=== PATIENT | male | born 1955 | race Caucasian/White ===

== ENCOUNTER 2016-11-19 13:27 | Day surgery (SDC) | payer OTHER ==
[~2016-11-19] VITALS: Ht 167.6 cm; Wt 93.6 kg
[2016-11-19] MEDS ORDERED: FISH1000 PO (13:36)
[2016-11-19] MEDS ORDERED: MELO15TA4 PO (13:46)
[2016-11-19] MEDS ORDERED: METF10004 PO (13:46)
[2016-11-19] MEDS ORDERED: TIOT18INH INH (13:46)
[2016-11-19] MEDS ORDERED: BUDE3CAP PO (13:46)
[2016-11-19] MEDS ORDERED: ASPI81TA85 PO (13:46)
[2016-11-19] MEDS ORDERED: ATOR40TA75 PO (13:46)
[2016-11-19] MEDS ORDERED: HYDR12.55 PO (13:46)
[2016-11-19] MEDS ORDERED: CARV3.12 PO (13:46)
[2016-11-19] MEDS ORDERED: ALBU17IN INH (13:46)
[2016-11-19] MEDS ORDERED: LISI40TAB PO (13:46)
[2016-11-19] MEDS ORDERED: AMLO10TA2 PO (13:46)
[2016-11-19] MEDS ORDERED: NS 1,000 ML IV ONE (14:00)
[2016-11-19 14:25] LABS: BASO # 0.1 K/mm3 (0.0-0.2); BASO % 0.7 % (0.0-1.0); EOS # 0.2 K/mm3 (0.0-0.50); EOS % 1.1 % (0.0-3.0); LARGE UNSTAINED CELL # 0.2 K/mm3 (0.0-0.4); LARGE UNSTAINED CELL % 1.3 % (0.0-4.0); LYMPH % 7.3 % (24.0-44.0); MEAN CORPUSCULAR HEMOGLOBIN 31.2 pg (27.0-33.0); MEAN CORPUSCULAR HGB CONC 34.8 g/dl (32.0-36.5); MEAN CORPUSCULAR VOLUME 89.6 fl (80.0-96.0); MONO # 0.7 K/mm3 (0.0-0.8); MONO % 5.1 % (0.0-5.0); NEUTROPHILS # 11.8 K/mm3 (1.8-7.7); NEUTROPHILS % 84.5 % (36.0-66.0); PLATELET COUNT, AUTOMATED 196 k/mm3 (150-450)
[2016-11-19 15:00] LABS: ALBUMIN 4.2 GM/DL (3.2-5.2); ALBUMIN/GLOBULIN RATIO 0.91 (1.00-1.93); ALKALINE PHOSPHATASE 101 U/L (45-117); ALT/SGPT 59 U/L (12-78); ANION GAP 8 MEQ/L (8-16); AST/SGOT 21 U/L (15-37); BILIRUBIN,DIRECT 0.4 MG/DL (0.0-0.2); BILIRUBIN,TOTAL 1.7 MG/DL (0.2-1.0); BLOOD UREA NITROGEN 17 MG/DL (7-18); CALCIUM LEVEL 9.5 MG/DL (8.8-10.2); CARBON DIOXIDE LEVEL 29 MEQ/L (21-32); CHLORIDE LEVEL 97 MEQ/L (98-107); CREATININE FOR GFR 1.24 MG/DL (0.70-1.30); GLOMERULAR FILTRATION RATE > 60.0 (>49); GLUCOSE, FASTING 115 MG/DL (80-110); POTASSIUM SERUM 3.7 MEQ/L (3.5-5.1); SODIUM LEVEL 134 MEQ/L (136-145); TOTAL PROTEIN 8.8 GM/DL (6.4-8.2)
[2016-11-19] MEDS ORDERED: ISOVUE-370 76% 100ML VIAL (Q9967) As Ordered ONE (15:14)
--- NOTE | 2016-11-19 16:00 | REP ---
Clinical: Right lower quadrant pain. Technique: Axial contrast enhanced images from the lung bases to the pubic symphysis using 100 ml Isovue 370 intravenous contrast material with coronal and sagittal re-formations. Findings:Acute appendicitis includes fluid-filled dilated appendix measuring 19 mm diameter with small appendicolith at the base of the appendix and moderate to significant surrounding periappendiceal and right lower quadrant inflammatory stranding. No free fluid, drainable collection or abscess. No evidence for bowel obstruction. No free air to suggest perforation. Fatty infiltration to the liver without focal hepatic lesion. Spleen, pancreas, gallbladder, right adrenal gland and bilateral kidneys are normal. Left adrenal gland includes 1.4 cm heterogeneous nodule which may represent benign adenoma. The enteric system is unremarkable with the exception of the above-mentioned acute appendicitis. Pelvis demonstrates normal bladder and age appropriate prostate/seminal vesicles. Fat containing inguinal hernias noted. Abdominal aorta without aneurysm or dissection. Surrounding musculoskeletal structures demonstrate age-related degenerative changes. Lung bases are clear. Impression: 1. Acute appendicitis as described above without evidence for drainable collection/abscess, bowel perforation or obstruction. 2. Hepatosteatosis. 3. 1.4 cm left adrenal lesion likely adenoma. Signed by Mau Hager MD 11/19/2016 03:52 P
[2016-11-19] MEDS ORDERED: ONDANSETRON 4MG/2ML VIAL (J2405) IV PRN (16:15)
[2016-11-19] MEDS ORDERED: KETOROLAC 30 MG/ML VIAL (J1885) IV PRN (16:15)
[2016-11-19] MEDS ORDERED: MORPHINE 4 MG/ML 1ML SYRINGE IV ONE (16:15)
[2016-11-19] MEDS ORDERED: ONDANSETRON 4MG/2ML VIAL (J2405) IV ONE (16:15)
[2016-11-19] MEDS ORDERED: NORCO, ANEXSIA 5/325MG TABLET (HYDROcodone/ACETAMINOPHEN) PO PRN (16:15)
[2016-11-19] MEDS ORDERED: MORPHINE 2 MG/ML 1ML SYRINGE IV PRN (16:15)
[2016-11-19] MEDS ORDERED: ALBUTEROL 90 MCG/ACT 8GM HFA INHALER INH PRN (16:15)
[2016-11-19] MEDS ORDERED: PIPERACILLIN/TAZOBACTAM SOD 3.375 GM in D5W MINI-BAG PLUS 50 ML IV ONE (16:15)
[2016-11-19] MEDS ORDERED: ACETAMINOPHEN TAB 650MG DOSE (2X325MG) PO PRN (16:15)
[2016-11-19] MEDS ORDERED: HYDR25TAB PO (16:19)
[2016-11-19] MEDS: metFORMIN (GLUCOPHAGE) 1000 MG TABLET PO SCH (18:00)
[2016-11-19 18:26] VITALS: BP 160/75
[2016-11-19] MEDS: LR 1,000 ML IV SCH (18:42)
[2016-11-19] MEDS: CARVedilol 3.125 MG TAB PO SCH (20:32)
[2016-11-19] MEDS: SENOKOT S TAB PO SCH (21:00)
[2016-11-19 21:30] VITALS: BP 120/55
[2016-11-19] MEDS: HEPARIN SOD (PORCINE) 5000 UNITS/ML VIAL SC SCH (21:30)
[2016-11-19] MEDS: PIPERACILLIN/TAZOBACTAM SOD 3.375 GM in D5W MINI-BAG PLUS 50 ML IV SCH (22:00)
[2016-11-19] MEDS ORDERED: BUPIVACAINE/EPIN 0.25% 30 ML VIAL As Ordered ONE (22:02)
[2016-11-19] MEDS ORDERED: PROPOFOL 200 MG/20 ML VIAL As Ordered ONE (22:54)
[2016-11-19] MEDS ORDERED: ONDANSETRON 4MG/2ML VIAL (J2405) As Ordered ONE (22:54)
[2016-11-19] MEDS ORDERED: LIDOCAINE 2% INJ 100 MG/5 ML SDV (FOR ANES.) As Ordered ONE (22:54)
[2016-11-19] MEDS ORDERED: KETOROLAC 60 MG/2 ML VIAL (J1885) As Ordered ONE (22:54)
[2016-11-19] MEDS ORDERED: MIDAZOLAM INJ 2 MG/2 ML VIAL (J2250) As Ordered ONE (22:54)
[2016-11-19] MEDS ORDERED: dexameTHASONE 4 MG/ML 1ML VIAL (J1100) As Ordered ONE (22:54)
[2016-11-19] MEDS ORDERED: ROCURONIUM BROMIDE 50 MG/5 ML VIAL/SYRINGE As Ordered ONE (22:54)
[2016-11-19] MEDS ORDERED: fentaNYL 250 MCG/5 ML INJECTION (J3010) As Ordered ONE (22:54)
[2016-11-19] MEDS ORDERED: fentaNYL 100 MCG/2 ML INJECTION (J3010) As Ordered ONE (22:54)
--- NOTE | 2016-11-19 23:12 | HPE ---
DATE OF ADMISSION: 11/19/2016 CHIEF COMPLAINT: Abdominal pain. HISTORY OF PRESENT ILLNESS: Abdominal pain. HISTORY OF PRESENT ILLNESS: The patient is a 61-year-old male presents with right lower quadrant abdominal pain that started on Saturday. Has been getting progressively worse. No nausea or vomiting. No fevers at home. He has had just decreased appetite with the last meal being yesterday afternoon. He came into the emergency room today for evaluation. Had a CT scan done, which showed a dilated fluid-filled appendix with a fecalith in the base suggestive of acute appendicitis. PAST MEDICAL HISTORY: Hypertension, diabetes, hyperlipidemia. PAST SURGICAL HISTORY: Spinal neck surgery. ALLERGIES: NIACIN. MEDICATIONS: Please see med record. REVIEW OF SYSTEMS: Pertinent positives and negatives as stated in the history of present illness. SOCIAL HISTORY: Smokes a pack a day. Social alcohol. Denies any drug usage. FAMILY HISTORY: Noncontributory. PHYSICAL EXAMINATION: General: Patient is alert and oriented times three. No acute stress. Vitals: Temperature 97.4, pulse 70, respirations 17, blood pressure 120/55, pulse oximetry 93% on room air. HEENT: Pupils equal, round and react to light and accommodation. Heart: S1, S2 regular rate and rhythm. Lungs: Clear to auscultation bilaterally. Abdomen: Soft. Tender to palpation right lower quadrant. Localized guarding, no rebound, rigidity. Bowel sounds positive. Extremities: No clubbing, cyanosis or edema. LABORATORY DATA: White count 14, hemoglobin 16.2, platelets 196, potassium 3.7, creatinine 1.24, total bilirubin 1.7, direct bilirubin 0.4. IMAGING STUDIES: CT abdomen and pelvis shows an acute appendicitis with fluid-filled dilated appendix measuring 19 mm in diameter with a small appendicolith at the base of the appendix. Marked significant surrounding periappendiceal and right lower quadrant inflammatory stranding. No signs of any free fluid, drainable collection or abscesses. No signs of bowel obstruction. No free air. ASSESSMENT/PLAN: The patient 61-year-old male history of hypertension, diabetes, hyperlipidemia and neck surgery presents with right lower quadrant abdominal pain, found to have acute appendicitis. Recommendation to proceed with laparoscopic, possible open appendectomy. Risks and benefits of the procedure not limited to but including bleeding, infection, hernia formation, damage to surrounding structure, need for further surgery were discussed in detail with the patient. Informed consent was obtained and the procedure is scheduled for this evening. Postoperatively, he will be kept on IV fluids, antibiotics, regular diet. Once he is afebrile for 24 hours and his white count returns to normal he will be discharged home and will followup me in the office as an outpatient.
[2016-11-19] MEDS ORDERED: GLYCOPYRROLATE INJ 0.2 MG/ML 2 ML VIAL As Ordered ONE (23:15)
[2016-11-19] MEDS ORDERED: NEOSTIGMINE 1MG/ML 5 ML SYRINGE (J2710) As Ordered ONE (23:15)
[2016-11-19] MEDS ORDERED: ePHEDrine SULFATE 25 MG/5 ML(5MG/ML) SYRINGE As Ordered ONE (23:17)
[2016-11-19] MEDS ORDERED: FLUMAZENIL 0.5 MG/5 ML VIAL As Ordered ONE (23:50)
[2016-11-20] VITALS (10 sets, daily range): BP systolic 0–134; BP diastolic 0–85
[2016-11-20] MEDS ORDERED: KETOROLAC 30 MG/ML VIAL (J1885) IV PRN
[2016-11-20] MEDS ORDERED: LR 1,000 ML IV SCH (00:15)
[2016-11-20] MEDS ORDERED: ONDANSETRON 4MG/2ML VIAL (J2405) IV PRN (00:15)
[2016-11-20] MEDS ORDERED: fentaNYL 100 MCG/2 ML INJECTION (J3010) IV PRN (00:15)
[2016-11-20] MEDS ORDERED: ALBUTEROL SULFATE 2.5 MG/0.5 ML INH NEB SOLN INH PRN (00:30)
[2016-11-20] MEDS ORDERED: ALBUTEROL SULFATE 2.5 MG/0.5 ML INH NEB SOLN As Ordered ONE ×2 (00:37→00:40)
[2016-11-20] MEDS: PIPERACILLIN/TAZOBACTAM SOD 3.375 GM in D5W MINI-BAG PLUS 50 ML IV SCH ×2 (05:15→10:12)
[2016-11-20] MEDS: LR 1,000 ML IV SCH ×2 (05:15→08:39)
[2016-11-20] MEDS: HEPARIN SOD (PORCINE) 5000 UNITS/ML VIAL SC SCH (05:15)
[2016-11-20 05:51] LABS: MEAN CORPUSCULAR HEMOGLOBIN 30.3 pg (27.0-33.0); MEAN CORPUSCULAR HGB CONC 33.1 g/dl (32.0-36.5); MEAN CORPUSCULAR VOLUME 91.7 fl (80.0-96.0); RED CELL DISTRIBUTION WIDTH 13.5 % (11.5-14.5); WHITE BLOOD COUNT 9.7 K/mm3 (4.0-10.0)
[2016-11-20 06:19] LABS: ANION GAP 9 MEQ/L (8-16); BLOOD UREA NITROGEN 20 MG/DL (7-18); CALCIUM LEVEL 8.9 MG/DL (8.8-10.2); CARBON DIOXIDE LEVEL 27 MEQ/L (21-32); CHLORIDE LEVEL 100 MEQ/L (98-107); CREATININE FOR GFR 1.23 MG/DL (0.70-1.30); GLOMERULAR FILTRATION RATE > 60.0 (>49); GLUCOSE, FASTING 156 MG/DL (80-110); MAGNESIUM LEVEL 2.1 MG/DL (1.8-2.4); POTASSIUM SERUM 3.9 MEQ/L (3.5-5.1); SODIUM LEVEL 136 MEQ/L (136-145)
[2016-11-20] MEDS: metFORMIN (GLUCOPHAGE) 1000 MG TABLET PO SCH (08:37)
[2016-11-20] MEDS: CARVedilol 3.125 MG TAB PO SCH (08:38)
[2016-11-20] MEDS: SENOKOT S TAB PO SCH (08:38)
[2016-11-20] MEDS ORDERED: amLODIPine 10 MG TAB PO SCH (09:00)
[2016-11-20] MEDS ORDERED: MELOXICAM (MOBIC) 7.5 MG TAB PO SCH (09:00)
[2016-11-20] MEDS ORDERED: ASPIRIN 81 MG ENTERIC TAB PO SCH (09:00)
[2016-11-20] MEDS ORDERED: LISINOPRIL 40 MG TAB PO SCH (09:00)
[2016-11-20] MEDS ORDERED: ATORVASTATIN 20 MG TAB PO SCH (09:00)
[2016-11-20] MEDS ORDERED: hydroCHLOROthiazide 25 MG TAB PO SCH (09:00)
[2016-11-20] MEDS ORDERED: PANTOPRAZOLE 40MG INJ (PROTONIX) (C9113) IV SCH (09:00)
--- NOTE | 2016-11-20 09:30 | RO ---
DATE OF PROCEDURE: 11/19/2016 PREOPERATIVE DIAGNOSIS: Acute appendicitis. POSTOPERATIVE DIAGNOSIS: Acute appendicitis. PROCEDURE: Laparoscopic appendectomy. SURGEON: Kevin Hernandez DO ECONOMICS INSTRUCTOR: None. ANESTHESIA: General. ESTIMATED BLOOD LOSS: 5. COMPLICATIONS: None. INDICATIONS FOR PROCEDURE: Patient is a 61-year-old male who presents with right lower quadrant abdominal pain since last Saturday. Was found to have acute appendicitis on exam, which was confirmed with CT scan. Recommendation to proceed with laparoscopic, possible open appendectomy. Risks and benefits of procedure are not limited but include bleeding, infection, hernia formation, damage surrounding structures, need further surgery were discussed in detail with the patient. Informed consent was obtained and procedure was planned. DESCRIPTION OF PROCEDURE: Patient brought back to operating room #3. After sufficient sedation, the abdomen was sterilely prepped and draped. Next, time-out was done to confirm proper patient and proper procedure. Following that a left lower quadrant 5 mm incision was made. Incision was carried down to the level of the fascia. A Veress needle was then used to gain access to the abdomen. Once abdomen was entered it was insufflated to 50 mmHg. Next ,Veress needle was removed. 5 mm Optiview port was used to gain access to the abdomen. Once the abdomen was entered, the appendix was easily visualized adhered to the right lower quadrant abdominal wall. Another 8 mm port was placed supraumbilically, a 5 mm port suprapubically in the midline. A loop of small bowel was carefully teased away from the appendix that was adhered to the appendix as well as the cecum. Once all that was mobilized away the appendix was carefully off of the abdominal wall. It was then elevated up in the air. Mesoappendix was taken down using the Enseal to the base of the appendix was reached. Once the base of the appendix was reached it was ligated twice with PDS Endoloops and then amputated using the Enseal and brought out with a 5 mm EndoCatch bag through the umbilical port site. Fluid in the right lower quadrant was aspirated out. No irrigation was used. The skin incision at the umbilicus had to be widened to remove the large appendix. Once the appendix was removed, two interrupted #0 Vicryl sutures were used to approximate the fascia at the umbilical port site. The abdomen was then desufflated. Skin incisions were closed with #4-0 Vicryl subcuticular sutures. The abdomen was cleaned and dried. Steri-Strips, 4 x 4 and tape were applied, thus ending procedure.
== END 2016-11-20 12:55 | disposition home or self-care (01) ==
LOC: M ED 14:47 → M SDC 16:15 → M MSPAV 17:24 → M SDC 11-20 12:55
PROVIDERS: ATTEND Surgery
DX: K35.80 Unspecified acute appendicitis (principal); R06.09 Other forms of dyspnea; I10 Essential (primary) hypertension; E78.5 Hyperlipidemia, unspecified; J44.9 Chronic obstructive pulmonary disease, unspecified; E11.9 Type 2 diabetes mellitus without complications; R06.83 Snoring; F17.210 Nicotine dependence, cigarettes, uncomplicated; Z88.1 Allergy status to other antibiotic agents; Z79.899 Other long term (current) drug therapy
CPT/HCPCS: 36415; 44970; 74177; 80048; 80076; 81001; 83690; 83735; 85025; 85027; 88302; 96374; 96375; 99284; C9113; J1100; J1885; J2250; J2405; J2543; J2710; J3010; Q9967

== ENCOUNTER → 2019-02-16 | Outpatient (CLI) | payer OTHER ==
[~2019-02-16] MED LIST: ALBU17IN INH; AMLO10TA5 PO; ASPI81TA85 PO; ATOR40TA75 PO; BUDE3CAP PO; CARV3.12 PO; FISH1000 PO; HYDR12.55 PO; HYDR25TAB PO; LISI40TA PO; MELO15TA28 PO; METF10004 PO; TIOT18INH INH
--- NOTE | 2019-02-16 14:37 | REP ---
CAROTID ULTRASOUND: Real-time ultrasound evaluation and duplex Doppler interrogation of the extracranial carotid vasculature is performed. There is mild to moderate plaquing and narrowing in both carotid bulbs extending into the internal and external carotid arteries. Luminal narrowing is less than 50%. There is no evidence of hemodynamically significant stenosis of either internal carotid artery. Normal flow velocities are seen. The vertebral arteries demonstrate normal direction of flow. RIGHT LEFT Peak systolic velocity ICA 61.9 cm/s 69.3 cm/s End diastolic velocity ICA 24.3 cm/s 29.4 cm/s Peak systolic velocity CCA 43.9 cm/s 61.5 cm/s Peak systolic velocity ECA 107 cm/s 108 cm/s ICA/CCA ratio 0.71 0.89 IMPRESSION: Bilateral luminal narrowing of the internal carotid arteries less than 50%. No evidence of hemodynamically significant stenosis. Electronically Signed by Kevin Wood MD 02/16/2019 02:29 P
== END ==
LOC: M RAD 11:28
PROVIDERS: ATTEND Internal Medicine Cardiovascular Disease
DX: I65.21 Occlusion and stenosis of right carotid artery (principal)

== ENCOUNTER → 2024-12-01 | Outpatient (CLI) | payer OTHER ==
[~2024-12-01] MED LIST changes: -AMLO10TA5 PO; +AMLO1TAB25 PO; -ASPI81TA85 PO; +ASPI81TA86 PO; +HYDR-3490 PO; -HYDR25TAB PO; -LISI40TA PO; +LISI40TA10 PO
[2024-12-01 11:30] LABS: BASO # 0.1 10^3/uL (0.0-0.2); BASO % 1.0 % (0.0-1.0); EOS # 0.3 10^3/uL (0.0-0.5); EOS % 4.5 % (0.0-3.0); LYMPH # 1.4 10^3/uL (1.5-5.0); LYMPH % 22.3 % (24.0-44.0); MONO # 0.5 10^3/uL (0.0-0.8); MONO % 7.4 % (2.0-8.0); NEUTROPHILS # 3.9 10^3/uL (1.5-8.5); NEUTROPHILS % 64.6 % (36.0-66.0); PLATELET COUNT, AUTOMATED 181 10^3/uL (150-450)
[2024-12-01 11:38] LABS: ALT/SGPT 16.0 U/L (7.0-40); AST/SGOT 21.0 U/L (<34); CALCIUM LEVEL 9.8 MG/DL (8.3-10.6); CARBON DIOXIDE LEVEL 32.0 MMOL/L (20-31); CHLORIDE LEVEL 97.0 MMOL/L (98-107); CREATININE FOR GFR 1.47 MG/DL (0.70-1.30); GLOMERULAR FILTRATION RATE 51.3 (>49); MAGNESIUM LEVEL 1.9 MG/DL (1.8-2.4); POTASSIUM SERUM 3.8 MMOL/L (3.5-5.1); SODIUM LEVEL 139.0 MMOL/L (136-145)
== END ==
LOC: M LAB 10:25
PROVIDERS: ATTEND Registered Nurse
DX: I50.42 Chronic combined systolic (congestive) and diastolic (congestive) heart failure (principal); I25.10 Atherosclerotic heart disease of native coronary artery without angina pectoris

== ENCOUNTER → 2024-12-16 | Outpatient (CLI) | payer MEDICARE, OTHER ==
[2024-12-16 12:07] LABS: CALCIUM LEVEL 9.1 MG/DL (8.3-10.6); CARBON DIOXIDE LEVEL 26.0 MMOL/L (20-31); CHLORIDE LEVEL 103.0 MMOL/L (98-107); CREATININE FOR GFR 1.76 MG/DL (0.70-1.30); GLOMERULAR FILTRATION RATE 41.3 (>49); MAGNESIUM LEVEL 2.2 MG/DL (1.8-2.4); PHOSPHORUS LEVEL 3.2 MG/DL (2.4-5.1); POTASSIUM SERUM 4.1 MMOL/L (3.5-5.1); SODIUM LEVEL 139.0 MMOL/L (136-145)
== END ==
LOC: M LAB 09:59
PROVIDERS: ATTEND Registered Nurse
DX: I50.42 Chronic combined systolic (congestive) and diastolic (congestive) heart failure (principal)

== ENCOUNTER → 2025-01-14 | Outpatient (CLI) | payer OTHER ==
[2025-01-14 10:21] LABS: ALT/SGPT 14.0 U/L (7.0-40); AST/SGOT 16.0 U/L (<34); CALCIUM LEVEL 8.8 MG/DL (8.3-10.6); CARBON DIOXIDE LEVEL 29.0 MMOL/L (20-31); CHLORIDE LEVEL 108.0 MMOL/L (98-107); CREATININE FOR GFR 1.47 MG/DL (0.70-1.30); GLOMERULAR FILTRATION RATE 51.3 (>49); MAGNESIUM LEVEL 2.2 MG/DL (1.8-2.4); POTASSIUM SERUM 4.1 MMOL/L (3.5-5.1); SODIUM LEVEL 143.0 MMOL/L (136-145)
== END ==
LOC: M LAB 09:18
PROVIDERS: ATTEND Registered Nurse
DX: I50.42 Chronic combined systolic (congestive) and diastolic (congestive) heart failure (principal)